=== PATIENT | female | born 1970 | race Asian ===

== ENCOUNTER 2019-09-07 07:06 | Emergency (ER) | payer MEDICAID ==
[~2019-09-07] VITALS: Ht 160 cm; Wt 50.8 kg
[2019-09-07 07:14] VITALS: BP_SYST 121
--- NOTE | 2019-09-07 07:21 | NUR ---
Patient triaged and placed in waiting room. VSS and patient appears in no acute distress at this time. Awaiting available bed, and MD notified of need for MSE.
--- NOTE | 2019-09-07 07:51 | NUR ---
Patient to ER bed 1 to gown for evaluation. Side rails up. Report given to MORIS Garner.
--- NOTE | 2019-09-07 08:05 | NUR ---
ER Dr. Márquez at bedside examining patient.
--- NOTE | 2019-09-07 08:10 | NUR ---
PT CAME TO ER FOR BODY ACHES, HAMMOND, AND GENERALIZED PAIN 02/20. RESTING IN BED AWAITING MD.
[2019-09-07 08:15] VITALS: BP_SYST 121
--- NOTE | 2019-09-07 08:15 | NUR ---
Patient given written and verbal discharge instructions and verbalizes understanding. ER MD discussed with patient the results and treatment provided. Patient in stable condition. ID arm band removed. Rx of TAMIFLU AND MOTRIN given. Patient educated on pain management and to follow up with PMD. Pain Scale 0/10. Opportunity for questions provided and answered. Medication side effect fact sheet provided.
== END 2019-09-07 08:15 | disposition home or self-care (01) ==
LOC: SED 07:06
DX: J11.1 Influenza due to unidentified influenza virus with other respiratory manifestations (principal)
CPT/HCPCS: 81002; 99283